=== PATIENT | female | born 1940 | race Caucasian/White ===

== ENCOUNTER 2019-05-13 22:25 | Inpatient (IN) | payer BC, MEDICARE ==
[~2019-05-13] VITALS: Ht 162.6 cm; Wt 59.0 kg
[2019-05-13] MEDS ORDERED: LISINOPRIL5 MG PO (22:28)
--- NOTE | 2019-05-13 23:52 | NUR ---
CONTINUES TO COMPLAIN OF BACK PAIN. INCONTINENT OF URINE WITH EMESIS. REFUSES TO BE CHANGED. FLEXERIL GIVEN FOR MUSCLE SPASMS IN LEGS.
[2019-05-14 00:29] LABS: BASOPHILS 0.3 % (0-2); EOSINOPHILS 0.8 % (0-7); HEMATOCRIT 35.6 % (36.0-48.0); HEMOGLOBIN 12.3 g/dL (12-16); IMMATURE GRANULOCYTES 0.5 % (0-5); LYMPHOCYTES 8.7 % (15-50); MCH 31.3 pg (26.0-34.0); MCHC 34.6 g/dL (31.0-37.0); MCV 90.6 fL (80.0-100.0); MEAN PLATELET VOLUME 9.2 fL (7.4-10.4); MONOCYTES 7.9 % (2-11); NEUTROPHILS 81.8 % (40-80); PLATELET COUNT 257 10x3/uL (130-400); RBC 3.93 10x6/uL (4.00-5.40); RDW 12.7 % (11.5-14.5); WBC 7.8 10x3/uL (4.8-10.8)
[2019-05-14 00:40] LABS: CALC OSMOLALITY 260 mosm/kg (275-300); CALCIUM 8.9 mg/dL (8.5-10.1); CARBON DIOXIDE 26.5 mmol/L (21.0-32.0); CHLORIDE - SERUM 93 mmol/L (98-107); CREATININE - SERUM 0.7 mg/dL (0.6-1.3); GLUCOSE 117 mg/dL (74-106); POTASSIUM - SERUM 3.5 mmol/L (3.5-5.1); SODIUM 129 mmol/L (136-145); UREA NITROGEN 15 mg/dL (7-18); eGFR NON AFRICAN AMERICAN 85 mL/min (90-120)
[2019-05-14 00:45] LABS: ALBUMIN 3.8 g/dL (3.4-5.0); ALKALINE PHOSPHATASE 66 U/L (30-120); ALT (SGPT) 21 U/L (10-68); PROTEIN - SERUM 8.1 g/dL (6.4-8.2)
[2019-05-14 00:46] LABS: INR 1.06 (0.85-1.17); PROTIME 13.7 SECONDS (11.6-15.0)
[2019-05-14 02:16] VITALS: BP 165/67; BMI 22.3
[2019-05-14 05:33] LABS: BASOPHILS 0.1 % (0-2); EOSINOPHILS 0 % (0-7); HEMATOCRIT 34.2 % (36.0-48.0); HEMOGLOBIN 11.6 g/dL (12-16); IMMATURE GRANULOCYTES 0.1 % (0-5); LYMPHOCYTES 4.9 % (15-50); MCH 30.9 pg (26.0-34.0); MCHC 33.9 g/dL (31.0-37.0); MCV 91.2 fL (80.0-100.0); MEAN PLATELET VOLUME 9.4 fL (7.4-10.4); MONOCYTES 1.1 % (2-11); NEUTROPHILS 93.8 % (40-80); PLATELET COUNT 251 10x3/uL (130-400); RBC 3.75 10x6/uL (4.00-5.40); RDW 12.8 % (11.5-14.5)
[2019-05-14 05:48] LABS: ANION GAP 12.6 mmol/L (8-16); CALCIUM 8.7 mg/dL (8.5-10.1); CARBON DIOXIDE 24.2 mmol/L (21.0-32.0); CREATININE - SERUM 0.8 mg/dL (0.6-1.3); MAGNESIUM - SERUM 1.9 mg/dL (1.8-2.4); PHOSPHOROUS 3.2 mg/dL (2.5-4.9); POTASSIUM - SERUM 3.8 mmol/L (3.5-5.1)
--- NOTE | 2019-05-14 07:56 | NUR ---
REPORT RECEIVED. WILL CONTINUE WITH POC. PT CURRENTLY LYING SUPINE. CALL LIGHT W/I REACH. AT BEDSIDE. RR EVEN AND UNLABORED ON RA. PUREWICK IN PLACE AND COLLECTED URINE. NS INFUSING @75ML/HR AND MORPHINE DRAWING IN HAND VIA L.AC PIV. NO S/S OF DISTRESS NOTED. PT DENIES ANY NEEDS AT THIS TIME. WILL CTM.
[2019-05-14 08:55] VITALS: BP 155/72
[2019-05-14 09:49] LABS: CKMB 1.6 U/L (0.0-3.6); CREATINE KINASE 132 UL (21-215); TROPONIN-I < 0.017 ng/mL (0.000-0.060)
[2019-05-14 12:26] LABS: BILIRUBIN NEGATIVE (NEGATIVE); GLUCOSE NEGATIVE (NEGATIVE); KETONE SMALL mg/dL (NEGATIVE); NITRITE NEGATIVE (NEGATIVE); SPECIFIC GRAVITY 1.005 (1.005-1.020); UROBILINOGEN NORMAL (NORMAL)
[2019-05-14 12:38] VITALS: BP 165/69
[2019-05-14 12:59] VITALS: Ht 162.6 cm; Wt 59.0 kg
[2019-05-14 13:10] LABS: CHOL - HDL RATIO 3.7 ratio (2.3-4.1); LDL-HDL RATIO 2.5 ratio (1.5-3.5)
--- NOTE | 2019-05-14 13:22 | MORECARE ---
CASE MANAGEMENT DISCHARGE SUMMARY PATIENT: OK GONZALEZ UNIT: [id number] ADM DATE: 05/14/19 AGE: 78 : 39 SEX: F ROOM/BED: D.2237 AUTHOR: ADINA CANTU PHYSICIAN: REFERRING PHYSICIAN: CLAIRE MAURICE MD DATE OF SERVICE: 05/14/19 Discharge Plan Patient Name: OK GONZALEZ Facility: [facility]:[place] : 1940 Planned Disposition: Home Anticipated Discharge Date: Discharge Date: Expected LOS: Initial Reviewer: [email or web address] Initial Review Date: 05/14/2019 Generated: 05/14/19 2:21 pm Patient Name: OK GONZALEZ Page 05309 at 1322 All edits/amendments must be made on the electronic document DICTATION DATE: 05/14/19 1321 METROLOGY MANAGER: NAT 05/14/19 1321 RPT#: [id number] DC DATE: STATUS: ADM IN [facility] [address] [place] [address] END OF REPORT
--- NOTE | 2019-05-14 13:30 | MORECARE ---
CASE MANAGEMENT DISCHARGE SUMMARY PATIENT: OK GONZALEZ UNIT: [id number] ADM DATE: 05/14/19 AGE: 78 : 39 SEX: F ROOM/BED: D.[facility]7 AUTHOR: ADINA CANTU PHYSICIAN: REFERRING PHYSICIAN: CLAIRE MAURICE MD DATE OF SERVICE: 05/14/19 Discharge Plan Patient Name: OK GONZALEZ Facility: [facility]:[place] : 1940 Planned Disposition: Home Anticipated Discharge Date: Discharge Date: Expected LOS: Initial Reviewer: [email or web address] Initial Review Date: 05/14/2019 Generated: 05/14/19 2:29 pm DCPIA - Discharge Planning Initial Assessment Updated by [email or web address]: Maritza Charlton on 05/14/19 1:24 pm * Is the patient Alert and Oriented? Yes * How many steps to enter\exit or inside your home? 03/03 flight * PCP Dr. Urena * Pharmacy [facility] * Preadmission Environment Home with Family * ADLs Independent * Equipment None * List name and contact numbers for known caregivers / representatives who currently or will assist patient after discharge: [facility] - [phone] * Verbal permission to speak to the caregivers and representatives has been obtained from the patient. Yes * Community resources currently utilized None * Additional services required to return to the preadmission environment? No * Can the patient safely return to the preadmission environment? Yes * Has this patient been hospitalized within the prior 30 days at any hospital? No Last DP export: 05/14/19 12:22 p Patient Name: OK GONZALEZ Page 03847 at 1330 All edits/amendments must be made on the electronic document DICTATION DATE: 05/14/19 1329 TOOLMAKER HELPER: NAT 05/14/19 1329 RPT#: [id number] DC DATE: STATUS: ADM IN [facility] [address] [place] [address] END OF REPORT
--- NOTE | 2019-05-14 13:37 | MORECARE ---
CASE MANAGEMENT DISCHARGE SUMMARY PATIENT: OK GONZALEZ UNIT: [id number] ADM DATE: 05/14/19 AGE: 78 : 39 SEX: F ROOM/BED: D.2237 AUTHOR: ALONDRA,DOC PHYSICIAN: REFERRING PHYSICIAN: CLAIRE MAURICE MD DATE OF SERVICE: 05/14/19 Discharge Plan Patient Name: OK GONZALEZ Facility: [facility]:[place] : 1940 Planned Disposition: Home Anticipated Discharge Date: Discharge Date: Expected LOS: Initial Reviewer: [email or web address] Initial Review Date: 05/14/2019 Generated: 05/14/19 2:37 pm Comments DCP- Discharge Planning Updated by [email or web address]: Maritza Charlton on 05/14/19 12:[address] Patient Name: OK GONZALEZ Admission Status: ER Accout number: [id number] Admission Date: 05-14-2019 : 1940 Admission Diagnosis: Attending: CLAIRE MAURICE Current LOS: 1 Anticipated DC Date: Planned Disposition: Home Primary Insurance: [employer] Discharge Planning Comments: CM met with patient to complete initial dc planning assessment. CM educated patient on the CM role and verbal consent given by patient to complete assessment. Patient lives at home with her spouse. At discharge patient plans to return home and feels this is a safe discharge. She is waiting on her back brace. I spoke with nurse and he has called DME company for the brace. She states she does not use assistive device at home for ambulation, but will get a walker if needed. I discussed availability of rehab, SNF, home health and DME and she declines need at this time. CM will continue to follow and assist with discharge planning/needs. Associate Financial Representative: Maritza Charlton DCPIA - Discharge Planning Initial Assessment Updated by [email or web address]: Maritza Charlton on 05/14/19 1:24 pm * Is the patient Alert and Oriented? Yes * How many steps to enter\exit or inside your home? 03/03 flight * PCP Dr. Urena * Pharmacy [facility] * Preadmission Environment Home with Family * ADLs Independent * Equipment None * List name and contact numbers for known caregivers / representatives who currently or will assist patient after discharge: [facility] - [phone] * Verbal permission to speak to the caregivers and representatives has been obtained from the patient. Yes * Community resources currently utilized None * Additional services required to return to the preadmission environment? No * Can the patient safely return to the preadmission environment? Yes * Has this patient been hospitalized within the prior 30 days at any hospital? No Last DP export: 05/14/19 12:30 p Patient Name: OK GONZALEZ Page 69135 at 1337 All edits/amendments must be made on the electronic document DICTATION DATE: 05/14/191336 CHEMICAL LABORATORY TECHNICIAN: NAT 05/14/191336 RPT#: [id number] DC DATE: STATUS: ADM IN [facility] [address] [place] [address] END OF REPORT
--- NOTE | 2019-05-14 14:19 | NUR ---
I have reviewed this patient and I concur with the Shift Assessment completed by the Licensed Practical Nurse today this shift.
[2019-05-14 15:30] LABS: CKMB 1.5 U/L (0.0-3.6); CREATINE KINASE 124 UL (21-215)
[2019-05-14 15:31] LABS: TROPONIN-I < 0.017 ng/mL (0.000-0.060)
[2019-05-14 17:16] VITALS: BP 143/59
[2019-05-14 20:00] VITALS: BP 137/56
--- NOTE | 2019-05-14 20:00 | NUR ---
PATIENT RESTING IN BED WITH EYES OPEN. NO S/S OF DISTRESS. NO C/O AT THIS TIME. PATIENT HAS LEFT AC IV NORMAL SALINE @ 75 ML/HR. IV IS PATENT WITHOUT REDNESS, SWELLING, OR TENDERNESS. PATIENT HAS TELEMETRY: 59 SINUS ИВАН. PATIENT HAS BRACE ON BACK AND CAN, WITH MINIMAL ASSISTANCE PATIENT CAN AMBULATE TO THE RESTROOM. CALL LIGHT IN PLACE. WILL CONINUE TO [facility].
[2019-05-14 21:59] LABS: CKMB 1.3 U/L (0.0-3.6); CREATINE KINASE 110 UL (21-215); TROPONIN-I < 0.017 ng/mL (0.000-0.060)
--- NOTE | 2019-05-15 01:25 | NUR ---
I have reviewed this patient and I concur with the Shift Assessment completed by the Licensed Practical Nurse today this shift.
[2019-05-15 06:53] LABS: BASOPHILS 0.1 % (0-2); EOSINOPHILS 0.7 % (0-7); HEMATOCRIT 34.2 % (36.0-48.0); HEMOGLOBIN 11.4 g/dL (12-16); IMMATURE GRANULOCYTES 0.2 % (0-5); LYMPHOCYTES 12.3 % (15-50); MCH 30.8 pg (26.0-34.0); MCHC 33.3 g/dL (31.0-37.0); MCV 92.4 fL (80.0-100.0); MEAN PLATELET VOLUME 9.4 fL (7.4-10.4); MONOCYTES 8.3 % (2-11); NEUTROPHILS 78.4 % (40-80); PLATELET COUNT 269 10x3/uL (130-400); RDW 13.1 % (11.5-14.5); WBC 8.1 10x3/uL (4.8-10.8)
[2019-05-15 07:08] LABS: ANION GAP 12.8 mmol/L (8-16); CALCIUM 8.6 mg/dL (8.5-10.1); CARBON DIOXIDE 25.1 mmol/L (21.0-32.0); CREATININE - SERUM 0.8 mg/dL (0.6-1.3); MAGNESIUM - SERUM 2.1 mg/dL (1.8-2.4); PHOSPHOROUS 3.3 mg/dL (2.5-4.9); POTASSIUM - SERUM 3.9 mmol/L (3.5-5.1)
--- NOTE | 2019-05-15 07:31 | NUR ---
LAYING SUPINE. RR EVEN AND UNLABORED. DENIES NEEDS OR PAIN AT THIS TIME. CALL LIGHT WITHIN REACH. BED IN LOWEST POSITION. WILL CONTINUE TO MONITOR.
[2019-05-15 08:33] VITALS: BP 154/75
--- NOTE | 2019-05-15 11:39 | NUR ---
DENIES NEEDS OR PAIN AT THIS TIME. CALL LIGHT WITHIN REACH. BED IN LOWEST POSITION. WILL CONTINUE TO MONITOR.
[2019-05-15 12:28] VITALS: BP 153/67
--- NOTE | 2019-05-15 14:10 | NUR ---
AT BEDSIDE. WASH CLOTHS PROVIDED. DENIES FURTHER ASSIST
[2019-05-15 16:39] VITALS: BP 168/79
[2019-05-15 19:46] VITALS: BP 144/69
--- NOTE | 2019-05-15 20:00 | NUR ---
PATIENT RESTING IN BED READING. NO S/S OF DISTRESS. NO C/O AT THIS TIME. PATIENT HAD LEFT AC IV NORMAL SALINE @ 75 ML/HR. IV IS PATENT WITHOUT REDNESS, SWELLING, OR TENDERNESS. PATIENT HAS BACK BRACE ON. PATIENT IS UP WITH MINIMAL ASSISTANCE, TO THE BATHROOM AND SINK. PATIENT SAYS "MY BACK IS STILL TIGHT AND HAS MUSCLE SPASMS." PATIENT WAS INSTRUCTED THAT THIS WAS NORMAL, AND THAT WE COULD USE ICE PACKS OR HEAT PACKS IF SHE WANTED. CALL LIGHT IN PLACE. WILL COTINUE TO MONITOR.
[2019-05-16 01:20] VITALS: BP 184/78
--- NOTE | 2019-05-16 04:56 | NUR ---
I have reviewed this patient and I concur with the Shift Assessment completed by the Licensed Practical Nurse today this shift.
[2019-05-16 05:12] VITALS: BP 126/74
[2019-05-16 06:26] LABS: BASOPHILS 0.3 % (0-2); EOSINOPHILS 1.8 % (0-7); HEMATOCRIT 35.1 % (36.0-48.0); HEMOGLOBIN 11.5 g/dL (12-16); IMMATURE GRANULOCYTES 0.3 % (0-5); LYMPHOCYTES 12.2 % (15-50); MCH 30.3 pg (26.0-34.0); MCHC 32.8 g/dL (31.0-37.0); MCV 92.6 fL (80.0-100.0); MEAN PLATELET VOLUME 9.6 fL (7.4-10.4); MONOCYTES 9.3 % (2-11); NEUTROPHILS 76.1 % (40-80); PLATELET COUNT 274 10x3/uL (130-400); RBC 3.79 10x6/uL (4.00-5.40); RDW 13.2 % (11.5-14.5); WBC 7.3 10x3/uL (4.8-10.8)
[2019-05-16 06:41] LABS: CALC OSMOLALITY 267 mosm/kg (275-300); CALCIUM 8.6 mg/dL (8.5-10.1); CHLORIDE - SERUM 99 mmol/L (98-107); CREATININE - SERUM 0.7 mg/dL (0.6-1.3); GLUCOSE 111 mg/dL (74-106); MAGNESIUM - SERUM 1.8 mg/dL (1.8-2.4); PHOSPHOROUS 2.3 mg/dL (2.5-4.9); POTASSIUM - SERUM 3.8 mmol/L (3.5-5.1); SODIUM 134 mmol/L (136-145); UREA NITROGEN 9 mg/dL (7-18); eGFR NON AFRICAN AMERICAN 85 mL/min (90-120)
--- NOTE | 2019-05-16 07:00 | NUR ---
ALERT AND ORIENTED. NO C/O PAIN. NO S/S OF ACUTE DISTRESS NOTED. ON TELEMETRY 72 SR. BACK BRACE ON. IV TO LEFT AC, NS INFUSING @ 75ML/HR. SITE PATENT WITHOUT REDNESS OR SWELLING. DENIES ANY NEEDS AT THIS TIME. CALL LIGHT IN REACH. WILL CONTINUE TO MONITOR.
[2019-05-16 08:21] VITALS: BP 162/80
--- NOTE | 2019-05-16 10:13 | NUR ---
DISCHARGED PATIENT HOME WITH FAMILY VIA WHEELCHAIR. DISCONTINUED IV, CATHETER TIP INTACT. NO C/O PAIN. NO S/S OF ACUTE DISTRESS NOTED. DENIES ANY NEEDS AT THIS TIME. CALL LIGHT IN REACH. WILL CONTINUE TO MONITOR.
--- NOTE | 2019-05-16 10:15 | NUR ---
DISCHARGED PATIENT HOME VIA WHEELCHAIR WITH . DISCONTINUED IV, CATHETER TIP INTACT. WENT OVER DISCHARGE INSTRUCTIONS WITH PATIENT, VERBALIZED UNDERSTANDING. DENIES ANYTHING FURHTER.
--- NOTE | 2019-05-16 11:44 | MORECARE ---
CASE MANAGEMENT DISCHARGE SUMMARY PATIENT: OK GONZALEZ UNIT: [id number] ADM DATE: 05/14/19 AGE: 78 : 39 SEX: F ROOM/BED: D.2237 AUTHOR: ALONDRADOC PHYSICIAN: REFERRING PHYSICIAN: CLAIRE MAURICE MD DATE OF SERVICE: 05/16/19 Discharge Plan Patient Name: OK GONZALEZ Facility: [facility]:[place] : 1940 Planned Disposition: Home Anticipated Discharge Date: Discharge Date: 05/16/2019 Expected LOS: Initial Reviewer: [email or web address] Initial Review Date: 05/14/2019 Generated: 05/16/19 12:43 pm Comments DCP- Discharge Planning Updated by [email or web address]: Sasha Hernandez on 05/16/19 10:[address] Patient Name: OK GONZALEZ Encounter No: [id number] : 1940 Primary Insurance: [employer] [facility] Anticipated DC Date: Planned Disposition: Home External Planned Provider: : DCP follow-up note: Patient and family in agreement with discharge plan. No changes to plan. Case management will follow and assist as needed. Sasha Hernandez DCP- Discharge Planning Updated by [email or web address]: Maritza Charlton on 05/14/19 12:[address] Patient Name: OK GONZALEZ Admission Status: ER Accout number: [id number] Admission Date: 05-14-2019 : 1940 Admission Diagnosis: Attending: CLAIRE MAURICE Current LOS: 1 Anticipated DC Date: Planned Disposition: Home Primary Insurance: [employer] [facility] Discharge Planning Comments: CM met with patient to complete initial dc planning assessment. CM educated patient on the CM role and verbal consent given by patient to complete assessment. Patient lives at home with her spouse. At discharge patient plans to return home and feels this is a safe discharge. She is waiting on her back brace. I spoke with nurse and he has called DME company for the brace. She states she does not use assistive device at home for ambulation, but will get a walker if needed. I discussed availability of rehab, SNF, home health and DME and she declines need at this time. CM will continue to follow and assist with discharge planning/needs. Waitstaff: Maritza Charlton DCPIA - Discharge Planning Initial Assessment Updated by [email or web address]: Maritza Latesha on 05/14/19 1:24 pm * Is the patient Alert and Oriented? Yes * How many steps to enter\exit or inside your home? 03/03 flight * PCP Dr. Urena * Pharmacy [facility] on [address] * Preadmission Environment Home with Family * ADLs Independent * Equipment None * List name and contact numbers for known caregivers / representatives who currently or will assist patient after discharge: [facility] - [phone] * Verbal permission to speak to the caregivers and representatives has been obtained from the patient. Yes * Community resources currently utilized None * Additional services required to return to the preadmission environment? No * Can the patient safely return to the preadmission environment? Yes * Has this patient been hospitalized within the prior 30 days at any hospital? No Last DP export: 05/14/19 12:37 p Patient Name: OK GONZALEZ Page 09037 at 1144 All edits/amendments must be made on the electronic document DICTATION DATE: 05/16/19 1143 SECONDARY MARKET MANAGER: NAT 05/16/19 1143 RPT#: [id number] HI DATE:05/16/19 STATUS: DIS IN [facility] [address] [place] [address] END OF REPORT
--- NOTE | 2019-05-16 14:06 | NUR ---
I have reviewed this patient and I concur with the Shift Assessment completed by the Licensed Practical Nurse today this shift.
--- NOTE | 2019-05-16 17:11 | MORECARE ---
CASE MANAGEMENT DISCHARGE SUMMARY PATIENT: OK GONZALEZ UNIT: [id number] ADM DATE: 05/14/19 AGE: 78 : 39 SEX: F ROOM/BED: D.2237 AUTHOR: ALONDRADOC PHYSICIAN: REFERRING PHYSICIAN: CLAIRE MAURICE MD DATE OF SERVICE: 05/16/19 Discharge Plan Patient Name: OK GONZALEZ Facility: [facility]:[place] : 1940 Planned Disposition: Home Anticipated Discharge Date: Discharge Date: 05/16/2019 Expected LOS: Initial Reviewer: [email or web address] Initial Review Date: 05/14/2019 Generated: 05/16/19 6:10 pm Comments DCP- Discharge Planning Updated by [email or web address]: Sasha Hernandez on 05/16/19 10:[address] Patient Name: OK GONZALEZ Encounter No: [id number] : 1940 Primary Insurance: [employer] [facility] Anticipated DC Date: Planned Disposition: Home External Planned Provider: : DCP follow-up note: Patient and family in agreement with discharge plan. No changes to plan. Case management will follow and assist as needed. Sasha Hernandez DCP- Discharge Planning Updated by [email or web address]: Maritza Charlton on 05/14/19 12:[address] Patient Name: OK GONZALEZ Admission Status: ER Accout number: [id number] Admission Date: 05-14-2019 : 1940 Admission Diagnosis: Attending: CLAIRE MAURICE Current LOS: 1 Anticipated DC Date: Planned Disposition: Home Primary Insurance: [employer] [facility] Discharge Planning Comments: CM met with patient to complete initial dc planning assessment. CM educated patient on the CM role and verbal consent given by patient to complete assessment. Patient lives at home with her spouse. At discharge patient plans to return home and feels this is a safe discharge. She is waiting on her back brace. I spoke with nurse and he has called DME company for the brace. She states she does not use assistive device at home for ambulation, but will get a walker if needed. I discussed availability of rehab, SNF, home health and DME and she declines need at this time. CM will continue to follow and assist with discharge planning/needs. Sole Polisher: Maritza Charlton DCPIA - Discharge Planning Initial Assessment Updated by [email or web address]: Maritza Latesha on 05/14/19 1:24 pm * Is the patient Alert and Oriented? Yes * How many steps to enter\exit or inside your home? 03/03 flight * PCP Dr. Urena * Pharmacy [facility] on [address] * Preadmission Environment Home with Family * ADLs Independent * Equipment None * List name and contact numbers for known caregivers / representatives who currently or will assist patient after discharge: [facility] - [phone] * Verbal permission to speak to the caregivers and representatives has been obtained from the patient. Yes * Community resources currently utilized None * Additional services required to return to the preadmission environment? No * Can the patient safely return to the preadmission environment? Yes * Has this patient been hospitalized within the prior 30 days at any hospital? No Last DP export: 05/16/19 10:44 a Patient Name: OK GONZALEZ Page 98284 at 1711 All edits/amendments must be made on the electronic document DICTATION DATE: 05/16/191709 HEEL SEAT SANDER: NAT 05/16/191709 RPT#: [id number] [place] DATE:05/16/19 STATUS: DIS IN [facility] [address] [place] [address] END OF REPORT
--- NOTE | 2019-05-17 11:19 | EC ---
PATIENT:OK GONZALEZ DATE OF SERVICE: 05/14/19 SEX: F MEDICAL RECORD: [id number] DATE OF : [birth year] LOCATION:D.[facility] AGE OF PATIENT: 78 ADMISSION DATE: 05/14/19 REFERRING PHYSICIAN: INTERPRETING PHYSICIAN: JOSE ALFREDO SOLANO MD ECHOCARDIOGRAM REPORT ECHO CHARGES 4 ECHO COMPLETE Date: 05/14/19 CLINICAL DIAGNOSIS: SYNCOPE WITH COLLAPSE ECHOCARDIOGRAPHIC MEASUREMENTS (adult normal given) AC root (d.<3.7cm) 2.7 cm LV Septum d (<1.2 cm> 1.3 cm Valve Excursion 1.3 cm LV Septum (systole) 1.4 cm Left Atria (s.<4.0cm> 4.1 cm LVPW d(<1.2cm) 1.0 cm RV (d.<2.3cm) 2.5 cm LVPW (sytole) 1.7 cm LV diastole(<5.6CM) 4.4 cm MV E-F(>70mm/sec) cm LV systole 2.4 cm LVOT Diameter 1.8 cm MV exc.(>10mm) cm Est.ejection fraction (50-75%) % DOPPLER: LVIT cm/sec A 110 cm/sec E 87.0 cm/sec LA cm/sec RVSP 20.0 mmHg LVOT 119 cm/sec AOP1/2T m/s Asc. Ao 233 cm/sec RVOT 74.0 cm/sec RA cm/sec PA 100 cm/sec AV Gradient Peak 22.0 mmHg AV Mean 12.1 mmHg AV Area 1.1 cm MV Gradient Peak 8.2 mmHg MV Mean 2.5 mmHg MV Area cm COMMENTS: Stitching Machine Operator: 1 KD WOLFOE Environmental Health Inspector: 3 Dr. Arita TAPE# PACS Pericardial Effusion N DATE OF SERVICE: Adequate 2D, color flow imaging, spectral Doppler, and M-Mode. No LVH. LV internal dimension is normal. Wall motion is normal. EF is greater than or equal to 55%. Aortic valve is tricuspid. No evidence of stenosis by Doppler interrogation. Left atrium is minimally dilated at 4.1 cm. Mitral valve shows no prolapse. Trace MR. Right-sided chambers are grossly normal. Mild TR. ECHOCARDIOGRAM REPORT [id number] OK GONZALEZ TRANSINT:[id number] Voice Confirmation ID: [id number] DOCUMENT ID: [id number] JOSE ALFREDO SOLANO MD at 1119 CC: [id number] DICTATION DATE: 05/16/19 1225 POLICE PATROL LIEUTENANT: 05/16/192224 DIS IN 05/16/19 [place] [id number] [place] [id number]
== END 2019-05-16 10:16 | disposition home or self-care (01) | DRG 552 ==
LOC: D.ER 22:25 → D.MS 05-14 00:19
PROVIDERS: Emergency Medicine; Family Medicine; Internal Medicine Cardiovascular Disease; ADMIT Internal Medicine Nephrology; ATTEND Internal Medicine Nephrology
DX: S32.018A Other fracture of first lumbar vertebra, initial encounter for closed fracture (principal); E87.1 Hypo-osmolality and hyponatremia; W19.XXXA Unspecified fall, initial encounter; Y92.009 Unspecified place in unspecified non-institutional (private) residence as the place of occurrence of the external cause; I10 Essential (primary) hypertension; R55 Syncope and collapse; I65.23 Occlusion and stenosis of bilateral carotid arteries